=== PATIENT | male | born 1995 | race Caucasian/White ===

== ENCOUNTER 2017-07-18 15:16 | Emergency (ER) | payer BC ==
[~2017-07-18] VITALS: Ht 177.8 cm; Wt 65.8 kg
[~2017-07-18 15:16] MED LIST: IBUPROFEN 400400 M1 PO; IBUPROFEN 800800 M1 PO; IBUPROFEN 800800 MG PO; NOHOMEMEDICATIONS; NORCO 5-325 TA1 EACH PO
[2017-07-18 15:17] VITALS: BP 127/86
== END 2017-07-18 17:26 | disposition home or self-care (01) ==
LOC: ER 15:16
DX: S61.213A Laceration without foreign body of left middle finger without damage to nail, initial encounter (principal); F10.99 Alcohol use, unspecified with unspecified alcohol-induced disorder; W26.8XXA Contact with other sharp object(s), not elsewhere classified, initial encounter; Y93.89 Activity, other specified; Y92.89 Other specified places as the place of occurrence of the external cause; Y99.8 Other external cause status